=== PATIENT | male | born 1985 | race Caucasian/White ===

== ENCOUNTER 2018-12-16 13:46 | Emergency (ER) | payer BC ==
--- NOTE | 2018-12-16 15:21 | EDM.PDOC ---
ED HPI GENERAL MEDICAL PROBLEM - General Chief Complaint: Skin Complaint Stated Complaint: CHEST PAIN X 1 WEEK Time Seen by Provider: 12/16/18 15:05 Source of Information: Reports: Patient History Limitations: Reports: No Limitations - History of Present Illness INITIAL COMMENTS - FREE TEXT/NARRATIVE: 33-year-old male presents for evaluation and treatment of chest wall pain. Patient reports that he has an abscess to the chest wall. He had one to his right lower chest recently. This is been going on since around March. He has been seen a pv installer tech and infectious disease for this. At this time he is not on any antibiotics. He has scheduled follow-up with his infectious disease provider on December 25. He states that he had a biopsy and culture done on November 16 of this area. There is no growth after 2 weeks and 4 weeks. Had an MRI done on November 07. Patient reports for the last week he has had increasing pain to the area. Reports that movement causes significant pain. He is also concerned as he has appreciated overlying erythema over the area. He feels that it is increasing in size. He has been using [id number] naproxen and ice without any relief. He denies any fevers, chills, nausea or vomiting. Chest Pain Score (Numeric/FACES): 7 - Related Data Allergies Allergy/AdvReac Type Severity Reaction Status Date / Time tramadol Allergy Itching Verified 12/16/18 14:35 Home Meds: Home Meds Acetaminophen/oxyCODONE [Percocet 325-5 MG] 1 tab PO Q6HR PRN #7 tab 12/16/18 [ Rx] Doxycycline [Vibramycin] 100 mg PO BID #20 cap 12/16/18 [Rx] Past Medical History HEENT History: Reports: Impaired Vision Other HEENT History: wears eyeglasses. Musculoskeletal History: Reports: Fracture Other Musculoskeletal History: C3-C4 fx. Dermatologic History: Reports: Other (See Below) Other Dermatologic History: started Mar 2018 with abscess area to chest, other skin abscesses. - Infectious Disease History Infectious Disease History: Reports: Chicken Pox - Past Surgical History Musculoskeletal Surgical History: Reports: Other (See Below) Other Musculoskeletal Surgeries/Procedures:: spinal fusion, L-spine. Dermatological Surgical History: Reports: Skin Biopsy Social & Family History - Tobacco Use Smoking Status *Q: Never Smoker Second Hand Smoke Exposure: No - Caffeine Use Caffeine Use: Reports: Coffee - Recreational Drug Use Recreational Drug Use: No ED ROS GENERAL - Review of Systems Review Of Systems: See Below Constitutional: Denies: Fever, Chills Cardiovascular: Reports: Chest Pain (Chest wall) GI/Abdominal: Denies: Nausea, Vomiting Skin: Reports: Erythema, Lumps (Chest wall) ED EXAM, SKIN/RASH Exam: See Below Exam Limited By: No Limitations General Appearance: Alert, WD/WN, No Apparent Distress, Thin Respiratory/Chest: No Respiratory Distress, Lungs Clear, Normal Breath Sounds Cardiovascular: Normal Peripheral Pulses, Regular Rate, Rhythm, No Murmur GI/Abdominal: Normal Bowel Sounds, Soft, Non-Tender Neurological: Alert, Oriented, Normal Cognition Psychiatric: Normal Affect, Normal Mood Skin: Warm, Dry, Normal Color, Other (approximately 6cm in diameter mass to te anterior lower substernal/epigastric area; tender to palpation, no prurlent drainage, very slight overlying erythema, ) Course - Vital Signs Last Recorded V/S: Last Vital Signs Temp 97.9 F 12/16/18 15:49 Pulse 86 12/16/18 15:49 Resp 16 12/16/18 15:49 BP 139/107 H 12/16/18 15:49 Pulse Ox 99 12/16/18 15:49 - Re-Assessments/Exams Free Text/Narrative Re-Assessment/Exam: 12/16/18 15:19 Will start antibiotics possibly very early cellulitis. Will also give a fe wtabs for pain control. Educated ER is unable to refill narcotics. He will need to see his PCP or pain management for further pain control. Discharge instructions as documented. Departure - Departure Time of Disposition: 15:25 Disposition: Home, Self-Care 01 Condition: Fair Clinical Impression: Chest wall pain, Cellulitis - Discharge Information *PRESCRIPTION DRUG MONITORING PROGRAM REVIEWED*: Yes *COPY OF PRESCRIPTION DRUG MONITORING REPORT IN PATIENT TATUM: No Prescriptions: Acetaminophen/oxyCODONE [Percocet 325-5 MG] 1 tab PO Q6HR PRN #7 tab PRN Reason: Pain Doxycycline [Vibramycin] 100 mg PO BID #20 cap Instructions: Cellulitis, Adult, Chest Wall Pain, [id number] Referrals: Melisa Braswell PA-C [Primary Care Provider] - Forms: ED Department Discharge Additional Instructions: Doxycycline 1 tab twice a day for 10 days unless otherwise directed by primary care doctor or your infectious disease specialist. Percocet 1 tab every 6 hour as needed for pain. Percocet is habit-forming, take as few these as needed control your pain. Do not drive or operate machinery within 10 hours of taking prescription narcotic pain medication. unfortunately, the ER is unable to refill narcotics or manage chronic pain. Follow-up with your primary care provider for further management of your pain. Please return to the ER if your symptoms change or worsen.
== END 2018-12-16 15:49 | disposition home or self-care (01) ==
LOC: JD.ED 13:46
DX: L03.313 Cellulitis of chest wall (principal); R07.89 Other chest pain
CPT/HCPCS: 99284

== ENCOUNTER 2019-02-27 12:25 | Emergency (ER) | payer BC ==
[2019-02-27] MEDS ORDERED: Acetaminophen/oxyCODONE 325-5 MG Tab PO ONE (13:18)
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
== END 2019-02-27 14:23 | disposition home or self-care (01) ==
LOC: JD.ED 12:25
DX: M54.2 Cervicalgia (principal); M25.512 Pain in left shoulder; M79.621 Pain in right upper arm; Z87.81 Personal history of (healed) traumatic fracture
CPT/HCPCS: 99283; A9270

== ENCOUNTER 2019-03-01 11:37 | Emergency (ER) | payer BC ==
[2019-03-01] MEDS ORDERED: Sodium Chloride 0.9% 10 ML Syringe FLUSH PRN (12:40)
[2019-03-01] MEDS ORDERED: Sodium Chloride 0.9% 1,000 ML IV ONE (12:40)
--- NOTE | 2019-03-01 12:40 | EDM.PDOC ---
ED HPI GENERAL MEDICAL PROBLEM - General Chief Complaint: Flank Pain Stated Complaint: LEFT SIDE KIDNEY PAIN Time Seen by Provider: 03/01/19 12:07 Source of Information: Reports: Patient, RN Notes Reviewed History Limitations: Reports: No Limitations - History of Present Illness INITIAL COMMENTS - FREE TEXT/NARRATIVE: Patient is a 33-year-old male who presents to the ED for evaluation of left kidney pain. Patient notes that this left kidney pain is been here for around 1 -1.5 weeks now. He notes that when he takes any sort NSAIDs, this ends to make the pain worse. He notes that he has been taking Percocet, the steroid prescription given the other day for his neck pain, ibuprofen and naproxen. He states that the NSAIDs make pain worse. He notes a constant throbbing, but also gets some sharp flares at times. He also is complaining of left-sided flank pain. He notes some generalized fatigue, and thought maybe his urine could be a little bit strong smelling, he does note that they have been making lot segment changes as well. He recently started Vyvanse, which is an amphetamine derivative for ADHD. He does note that he has felt dehydrated a little bit more since starting the Vyvanse. His primary care provider is Melisa Braswell. He denies any hematuria, fevers or chills, dysuria, urinary frequency or urgency. Left Flank Pain Score (Numeric/FACES): 7 - Related Data Allergies Allergy/AdvReac Type Severity Reaction Status Date / Time tramadol Allergy Itching Verified 03/01/19 12:13 Home Meds: Home Meds Acetaminophen/oxyCODONE [Percocet 325-5 MG] 1 each PO Q6H PRN #20 tab 02/27/19 [ Rx] Colchicine 0.6 mg PO DAILY 02/27/19 [History] Gabapentin [Neurontin] 200 mg PO BID 02/27/19 [History] Hydroxychloroquine [Plaquenil] 200 mg PO BID 02/27/19 [History] Lisdexamfetamine Dimesylate [Vyvanse] 20 mg PO DAILY 02/27/19 [History] Multivitamin [Multivitamins] 1 mg PO DAILY 02/27/19 [History] Omeprazole 20 mg PO DAILY 02/27/19 [History] cloNIDine [Catapres] 0.1 mg PO BID 02/27/19 [History] predniSONE 20 mg PO ASDIRECTED #15 tab 02/27/19 [Rx] tiZANidine [Zanaflex] 4 mg PO DAILY 02/27/19 [History] Past Medical History HEENT History: Reports: Impaired Vision Other HEENT History: wears eyeglasses. Musculoskeletal History: Reports: Fracture Other Musculoskeletal History: C3-C4 fx. Dermatologic History: Reports: Other (See Below) Other Dermatologic History: started Mar 2018 with abscess area to chest, other skin abscesses. - Infectious Disease History Infectious Disease History: Reports: Chicken Pox - Past Surgical History Musculoskeletal Surgical History: Reports: Other (See Below) Other Musculoskeletal Surgeries/Procedures:: spinal fusion, L-spine. Dermatological Surgical History: Reports: Skin Biopsy Social & Family History - Family History Family Medical History: Noncontributory - Tobacco Use Smoking Status *Q: Never Smoker - Caffeine Use Caffeine Use: Reports: Soda ED ROS GENERAL - Review of Systems Review Of Systems: See Below Constitutional: Denies: Fever, Chills HEENT: Reports: No Symptoms Respiratory: Denies: Shortness of Breath Cardiovascular: Denies: Chest Pain GI/Abdominal: Reports: Diarrhea (mild amount of loose stools lately.). Denies: Constipation, Nausea, Vomiting : Reports: Flank Pain (Left flank). Denies: Discharge, Dysuria, Frequency, Hematuria, Urgency Musculoskeletal: Reports: Neck Pain (chronic R side) Skin: Reports: No Symptoms Neurological: Reports: No Symptoms Psychiatric: Reports: No Symptoms ED EXAM, RENAL/ - Physical Exam Exam: See Below Exam Limited By: No Limitations General Appearance: Alert, WD/WN, No Apparent Distress, Anxious (mildly) Eye Exam: Bilateral Eye: EOMI, Normal Inspection, PERRL Ears: Normal External Exam Nose: Normal Inspection Throat/Mouth: Normal Inspection, Normal Lips, Normal Teeth, Normal Gums, Normal Oropharynx, Normal Voice, No Airway Compromise Head: Atraumatic, Normocephalic Neck: Normal Inspection Respiratory/Chest: No Respiratory Distress, Lungs Clear, Normal Breath Sounds, No Accessory Muscle Use, Chest Non-Tender Cardiovascular: Normal Peripheral Pulses, Regular Rate, Rhythm, No Murmur GI/Abdominal: Normal Bowel Sounds, Soft, Non-Tender, No Distention, No Mass Back Exam: Normal Inspection, Full Range of Motion, CVA Tenderness (L). No: CVA Tenderness (R) Extremities: Normal Inspection, Normal Capillary Refill Neurological: Alert, Oriented, Normal Cognition, No Motor/Sensory Deficits Psychiatric: Normal Affect, Normal Mood Skin Exam: Warm, Dry, Intact, Normal Color, No Rash Course - Vital Signs Last Recorded V/S: Last Vital Signs Temp 98.0 F 03/01/19 12:05 Pulse 105 H 03/01/19 12:05 Resp 20 03/01/19 12:05 BP 141/101 H 03/01/19 12:05 Pulse Ox 100 03/01/19 12:05 - Orders/Labs/Meds Orders: Active Orders 24 hr Category Date Time Status Bladder Scan [RC] ASDIRECTED Care 03/01/19 15:14 Ordered Peripheral IV Care [RC] . DIRECTED Care 03/01/19 12:40 Ordered Sodium Chloride 0.9% [Saline Flush] Med 03/01/19 12:40 Ordered 10 ml FLUSH ASDIRECTED PRN Peripheral IV Insertion Adult [OM.PC] Stat Oth 03/01/19 12:40 Ordered Medication Orders Sodium Chloride (Saline Flush) 10 ml FLUSH ASDIRECTED PRN PRN Reason: Keep Vein Open Last Admin: 03/01/19 14:55 Dose: 10 ml Labs: Laboratory Tests 03/01/19 03/01/19 03/01/19 Range/Units 12:32 12:52 12:52 WBC 6.48 (4.23-9.07) K/mm3 RBC 4.92 (4.63-6.08) M/mm3 Hgb 14.1 (13.7-17.5) gm/dl Hct 43.5 (40.1-51.0) % MCV 88.4 (79.0-92.2) fl MCH 28.7 (25.7-32.2) pg MCHC 32.4 (32.2-35.5) g/dl RDW Std Deviation 38.9 (35.1-43.9) fL Plt Count 237 (163-337) K/mm3 MPV 10.8 (9.4-12.3) fl Neut % (Auto) 88.4 H (34.0-67.9) % Lymph % (Auto) 8.2 L (21.8-53.1) % [place] % (Auto) 2.9 L (5.3-12.2) % Eos % (Auto) 0 L (0.8-7.0) Baso % (Auto) 0.2 (0.1-1.2) % Neut # (Auto) 5.73 H (1.78-5.38) K/mm3 Lymph # (Auto) 0.53 L (1.32-3.57) K/mm3 [place] # (Auto) 0.19 L (0.30-0.82) K/mm3 Eos # (Auto) 0.00 L (0.04-0.54) K/mm3 Baso # (Auto) 0.01 (0.01-0.08) K/mm3 Manual Slide Review Normal smear Sodium 142 (136-145) mEq/L Potassium 4.2 (3.5-5.1) mEq/L Chloride 104 (98-107) mEq/L Carbon Dioxide 28 (21-32) mEq/L Anion Gap 14.2 (5-15) BUN 7 (7-18) mg/dL Creatinine 0.9 (0.7-1.3) mg/dL Est Cr Clr Drug Dosing 105.36 mL/min Estimated GFR (MDRD) > 60 (>60) mL/min BUN/Creatinine Ratio 7.8 L (14-18) Glucose 116 H (74-106) mg/dL Calcium 10.3 H (8.5-10.1) mg/dL Total Bilirubin 0.2 (0.2-1.0) mg/dL AST 15 (15-37) U/L ALT 28 (16-63) U/L Alkaline Phosphatase 145 H (46-116) U/L Total Protein 8.7 H (6.4-8.2) g/dl Albumin 4.1 (3.4-5.0) g/dl Globulin 4.6 gm/dL Albumin/Globulin Ratio 0.9 L (1-2) Urine Color Yellow (Yellow) Urine Appearance Clear (Clear) Urine pH 7.0 (5.0-8.0) Ur Specific [place] 1.015 (1.005-1.030) Urine Protein Negative (Negative) Urine Glucose (UA) Negative (Negative) Urine Ketones Negative (Negative) Urine Occult Blood Negative (Negative) Urine Nitrite Negative (Negative) Urine Bilirubin Negative (Negative) Urine Urobilinogen 0.2 (0.2-1.0) Ur Leukocyte Esterase Negative (Negative) Urine RBC Not seen (0-5) /hpf Urine WBC 0-5 (0-5) /hpf Ur Squamous Epith Cells 0-5 (0-5) /hpf Urine Bacteria Few (FEW) /hpf Urine Mucus Few (FEW) /hpf Meds: Medications Generic Name Dose Route Start Last Admin Trade Name Freq PRN Reason Stop Dose Admin Sodium Chloride 10 ml 03/01/19 12:40 03/01/19 14:55 Saline Flush FLUSH 10 ml ASDIRECTED PRN Administration Keep Vein Open Discontinued Medications Generic Name Dose Route Start Last Admin Trade Name Freq PRN Reason Stop Dose Admin Hydromorphone HCl 1 mg 03/01/19 13:55 03/01/19 14:49 Dilaudid IVPUSH 03/01/19 13:56 1 mg ONETIME ONE Administration Sodium Chloride 1,000 mls @ 500 mls/hr 03/01/19 12:40 03/01/19 14:48 Normal Saline IV 03/01/19 14:39 500 mls/hr ONETIME ONE Administration Iopamidol 100 ml 03/01/19 13:57 03/01/19 14:55 Isovue-300 (61%) IVPUSH 03/01/19 13:58 100 ml ONETIME ONE Administration Magnesium Citrate 296 ml 03/01/19 15:41 03/01/19 15:51 Citrate Of Magnesia PO 03/01/19 15:42 296 ml ONETIME ONE Administration Sodium Chloride 10 ml 03/01/19 13:57 03/01/19 15:51 Saline Flush FLUSH 03/01/19 13:58 10 ml ONETIME ONE Administration - Re-Assessments/Exams Free Text/Narrative Re-Assessment/Exam: 03/01/19 12:38 Patient presents for the evaluation of left-sided kidney pain. Did order a UA, CBC, CMP for initial evaluation. Suspicious for either acute kidney injury due to NSAID use, possible kidney stone, or UTI. He does take quite a few NSAID therapy today, and with him stating the pain worsens after NSAID use, this makes this more suspicious. Will likely start IV, and given some fluids as well. 03/01/19 14:18 Labs came back and are essentially within normal limits. I did discuss results with the patient, and he is concerned that he still feeling quite a bit of pain on the left flank. He was requesting that a CT be done for further evaluation. I did order a CT with IV contrast to evaluate for further etiology. 03/01/19 15:19 CT is done, Dr. Sykes appreciates quite a bit of stool throughout his colon, and a very distended bladder. But no other acute abnormalities were appreciated. Official radiology read is pending. I will order a post void residual after he has voided the next time, and possibly send the patient home with magnesium citrate to a bowel cleanse. 03/01/19 15:41 Official radiology read on the CT demonstrates nothing acute appreciated. As noted above. There was quite a bit of stool noted within the colon. We'll still some question with magnesium citrate, pending a normal post-void residual. Departure - Departure Time of Disposition: 15:43 Disposition: Home, Self-Care 01 Condition: Fair Clinical Impression: Constipation Qualifiers: Constipation type: unspecified constipation type Qualified Code(s): K59.00 - Constipation, unspecified - Discharge Information *PRESCRIPTION DRUG MONITORING PROGRAM REVIEWED*: No *COPY OF PRESCRIPTION DRUG MONITORING REPORT IN PATIENT TATUM: No Instructions: Constipation, Adult, [id number] Referrals: Melisa Braswell PA-C [Primary Care Provider] - Forms: ED Department Discharge Additional Instructions: You were evaluated in the ER today regarding her left-sided abdominal pain. Laboratory evaluation was within normal limits, there is no acute bacterial infection, you do not have blood in urine, and you have no electrolyte abnormalities, liver enzymes and good and kidney function looks good. Your abdomen CT demonstrated no acute structural abnormalities, it did show a diffuse amount of stool within your colon, which is suggestive of constipation. Due to you having to take opioid pain medications for pain relief, this is likely what might be causing your constipation. You should take MiraLAX on a daily basis to help soften your stools, increase your oral fluid intake. You were provided with a bottle of magnesium citrate, please drink one half of the bottle, wait a few hours for a large bowel movement, and if you do not have a large bowel movement after this, repeat the other half bottle. You may use your Percocet as previously prescribed, also you may use extra Tylenol for further pain relief. Keep your appointment with Melisa Braswell, regarding your medication changes, and possible medication side effects that you might be experiencing. Please return to the ED if your symptoms should change or worsen. - My Orders Last 24 Hours: My Active Orders 03/01/19 12:40 Peripheral IV Care [RC] . DIRECTED Sodium Chloride 0.9% [Saline Flush] 10 ml FLUSH ASDIRECTED PRN Peripheral IV Insertion Adult [OM.PC] Stat 03/01/19 15:14 Bladder Scan [RC] ASDIRECTED - Assessment/Plan Last 24 Hours: My Active Orders 03/01/19 12:40 Peripheral IV Care [RC] . DIRECTED Sodium Chloride 0.9% [Saline Flush] 10 ml FLUSH ASDIRECTED PRN Peripheral IV Insertion Adult [OM.PC] Stat 03/01/19 15:14 Bladder Scan [RC] ASDIRECTED
[2019-03-01] MEDS ORDERED: HYDROmorphone 1 MG/ML Syringe IVPUSH ONE (13:55)
[2019-03-01] MEDS ORDERED: Sodium Chloride 0.9% 10 ML Syringe FLUSH ONE (13:57)
[2019-03-01] MEDS ORDERED: Iopamidol 612 MG/ML 100 ML Bottle IVPUSH ONE (13:57)
--- NOTE | 2019-03-01 15:32 | CT ---
CT abdomen and pelvis Technique: Multiple axial sections were obtained from above the dome of the diaphragm inferiorly through the pubic symphysis. Intravenous contrast was utilized. No oral contrast has been given. Delayed images were obtained through the bladder. Comparison: No prior abdominal imaging. Findings: Visualized lung bases show nothing acute. Liver shows no focal abnormality. Gallbladder shows no calcified gallstones. Pancreas is within normal limits. Adrenal glands show no nodule. Kidneys show symmetric contrast enhancement without hydronephrosis or mass. Aorta shows no aneurysm. No retroperitoneal adenopathy or mesenteric abnormalities are seen. No pelvic mass or adenopathy is seen. No free fluid or inflammatory change is seen within the abdomen or pelvis. Appendix not definitely visualized. Bone window settings shows previous surgery at L5-S1. Scoliosis is present within the spine. Delayed images show contrast within distal ureters and within the bladder. Impression: 1. Nothing acute is appreciated on CT study of the abdomen and pelvis. Diagnostic code #2
[2019-03-01] MEDS ORDERED: Magnesium Citrate Solution 296 ML Bottle PO ONE (15:41)
== END 2019-03-01 16:10 | disposition home or self-care (01) ==
LOC: JD.ED 11:37
DX: K59.00 Constipation, unspecified (principal); Z88.6 Allergy status to analgesic agent
CPT/HCPCS: 36415; 51798; 74177; 80053; 81001; 85025; 96361; 96374; 99284; A9270; J1170; J7040; Q9967

== ENCOUNTER 2019-04-28 18:39 | Emergency (ER) | payer BC ==
[2019-04-28] MEDS ORDERED: LORazepam 2 MG/ML SDV IVPUSH SCH (20:45)
--- NOTE | 2019-04-28 20:46 | EDM.PDOC ---
ED HPI GENERAL MEDICAL PROBLEM - General Chief Complaint: Skin Complaint Stated Complaint: HAD SURGERY ON CHEST NOW HAS A PAINFUL FLUID SAC Time Seen by Provider: 04/28/19 19:13 Source of Information: Reports: Patient History Limitations: Reports: No Limitations (Patient is unsure of specifics of his condition.) - History of Present Illness INITIAL COMMENTS - FREE TEXT/NARRATIVE: TRIAGE NOTE -- Pt had a aseptic abscess removed in January from his left chest. Now incision is weeping purulent drainage, 5cm width. [ End ] The patient has a draining feature of his central lower chest in the midline area. 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 He is not aware of what kind of underlying condition he has producing this. He sees a product steward and an infectious disease specialist both in [place]. He is unclear as to what is being treated by the specialist. The latest abscess was drained in January of this year. About 5 hours prior to presentation fluid began emanating from the site of his last abscess. There is been no fever or any other symptom of acute medical illness otherwise. He takes medications and has apparently taken Percocet which he takes multiple times a day without relief. Risk factors would include his underlying illness which at this point is unspecified and not clearly understood by the patient. Left Chest Pain Score (Numeric/FACES): 8 - Related Data Allergies Allergy/AdvReac Type Severity Reaction Status Date / Time tramadol Allergy Itching Verified 04/28/19 19:11 Home Meds: Home Meds Acetaminophen/oxyCODONE [Percocet 325-5 MG] 1 each PO Q6H PRN #20 tab 02/27/19 [ Rx] Colchicine 0.6 mg PO DAILY 02/27/19 [History] Gabapentin [Neurontin] 200 mg PO BID 02/27/19 [History] Hydroxychloroquine [Plaquenil] 200 mg PO BID 02/27/19 [History] Lisdexamfetamine Dimesylate [Vyvanse] 20 mg PO DAILY 02/27/19 [History] Multivitamin [Multivitamins] 1 mg PO DAILY 02/27/19 [History] Omeprazole 20 mg PO DAILY 02/27/19 [History] cloNIDine [Catapres] 0.1 mg PO BID 02/27/19 [History] tiZANidine [Zanaflex] 4 mg PO DAILY 02/27/19 [History] Naproxen [Naprosyn] 500 mg PO Q12HR PRN #10 tab 03/15/19 [Rx] Past Medical History HEENT History: Reports: Impaired Vision Other HEENT History: wears eyeglasses. Gastrointestinal History: Reports: GERD Musculoskeletal History: Reports: Fracture Other Musculoskeletal History: C3-C4 fx. Dermatologic History: Reports: Other (See Below) Other Dermatologic History: started Mar 2018 with abscess area to chest, other skin abscesses. Jan 2019 abcess removal/chest - Infectious Disease History Infectious Disease History: Reports: Chicken Pox - Past Surgical History Musculoskeletal Surgical History: Reports: Other (See Below) Other Musculoskeletal Surgeries/Procedures:: spinal fusion, L-spine. Dermatological Surgical History: Reports: Skin Biopsy Social & Family History - Family History Family Medical History: Noncontributory - Tobacco Use Smoking Status *Q: Current Every Day Smoker Years of Tobacco use: 10 Packs/Tins Daily: 0.5 - Caffeine Use Caffeine Use: Reports: Coffee - Recreational Drug Use Recreational Drug Use: No ED ROS GENERAL - Review of Systems Review Of Systems: Comprehensive ROS is negative, except as noted in HPI. ED EXAM, SKIN/RASH Exam: See Below Exam Limited By: No Limitations General Appearance: Alert, WD/WN, No Apparent Distress Eye Exam: Bilateral Eye: EOMI, PERRL Ears: Normal External Exam Nose: Normal Inspection Throat/Mouth: Normal Inspection Head: Atraumatic, Normocephalic Neck: Normal Inspection, Supple Respiratory/Chest: No Respiratory Distress, Lungs Clear, Other (Lower chest centrally just above the xiphoid process there is evidence of a transverse old incision about 5 cm overall with a clear yellowish viscous discharge coming from the wound. There is scant erythema. There is however a good bit of tenderness surrounding this feature. He is especially tender to deep palpation or pressure on the surrounding deep structures.) Cardiovascular: Regular Rate, Rhythm GI/Abdominal: Soft, Non-Tender Back Exam: Normal Inspection Extremities: Normal Inspection, Non-Tender Neurological: Alert, Oriented Psychiatric: Flat Affect Skin: Warm, Dry Course - Vital Signs Text/Narrative:: The various evaluations been reviewed. There are no salient lab abnormals. There is no elevated white count. However in light of the presentation and exam a CT of the chest was done which shows features of the sternum suspicious for osteomyelitis. We will go ahead and treat him empirically with vancomycin and Rocephin. It is preferable that his infectious disease specialist be involved in this. As it is the weekend it is expected that he cannot be seen until Tuesday. He is to place a call over the weekend and see if the ID [facility] consultant will call him back and give him further instructions. In any event we will continue with outpatient vancomycin and Rocephin given at the hospital as an outpatient until further instructions and recommendations from his infectious disease specialist. Last Recorded V/S: Last Vital Signs Temp 36.4 C 04/28/19 19:09 Pulse 98 04/28/19 19:09 Resp 15 04/28/19 19:09 BP 177/109 H 04/28/19 19:09 Pulse Ox 100 04/28/19 19:09 - Orders/Labs/Meds Orders: Active Orders 24 hr Category Date Time Status Chest w Cont [CT] Stat Exams 04/28/19 21:09 Taken CULTURE BLOOD [BC] Stat Lab 04/28/19 20:30 Received CULTURE BLOOD [BC] Stat Lab 04/28/19 20:35 Received CULTURE WOUND [RM] Stat Lab 04/28/19 20:35 Received LORazepam [Ativan] Med 04/28/19 20:45 Active 2 mg IVPUSH ONETIME Sodium Chloride 0.9% [Saline Flush] Med 04/28/19 21:19 Active 10 ml FLUSH ONETIME PRN Vancomycin [Vancocin] 1,675 gm Med 04/28/19 23:00 Ordered Sodium Chloride 0.9% [Normal Saline (AdvBag)] 250 ml IV ONETIME cefTRIAXone [Rocephin] 2 gm Med 04/28/19 23:15 Ordered Sodium Chloride 0.9% [Normal Saline] 100 ml IV ONETIME Blood Culture x2 Reflex Set [OM.PC] Stat Oth 04/28/19 19:46 Ordered Medication Orders Vancomycin HCl 1,675 gm/ (Sodium Chloride) 250 mls @ 250 mls/hr IV ONETIME ELIZABETH Ceftriaxone Sodium 2 gm/ (Sodium Chloride) 100 mls @ 200 mls/hr IV ONETIME ELIZABETH Lorazepam (Ativan) 2 mg IVPUSH ONETIME ELIZABETH Last Admin: 04/28/19 20:45 Dose: 2 mg Sodium Chloride (Saline Flush) 10 ml FLUSH ONETIME PRN PRN Reason: KEEP VEIN OPEN Last Admin: 04/28/19 21:39 Dose: 10 ml Labs: Laboratory Tests 04/28/19 04/28/19 04/28/19 Range/Units 20:30 20:30 20:30 WBC 7.37 (4.23-9.07) K/mm3 RBC 4.66 (4.63-6.08) M/mm3 Hgb 13.5 L (13.7-17.5) gm/dl Hct 40.7 (40.1-51.0) % MCV 87.3 (79.0-92.2) fl MCH 29.0 (25.7-32.2) pg MCHC 33.2 (32.2-35.5) g/dl RDW Std Deviation 40.7 (35.1-43.9) fL Plt Count 281 (163-337) K/mm3 MPV 10.3 (9.4-12.3) fl Neut % (Auto) 62.2 (34.0-67.9) % Lymph % (Auto) 26.5 (21.8-53.1) % [place] % (Auto) 9.1 (5.3-12.2) % Eos % (Auto) 1.8 (0.8-7.0) Baso % (Auto) 0.3 (0.1-1.2) % Neut # (Auto) 4.59 (1.78-5.38) K/mm3 Lymph # (Auto) 1.95 (1.32-3.57) K/mm3 [place] # (Auto) 0.67 (0.30-0.82) K/mm3 Eos # (Auto) 0.13 (0.04-0.54) K/mm3 Baso # (Auto) 0.02 (0.01-0.08) K/mm3 ESR 56 H (0-15) mm/hr Sodium 141 (136-145) mEq/L Potassium 3.8 (3.5-5.1) mEq/L Chloride 103 (98-107) mEq/L Carbon Dioxide 28 (21-32) mEq/L Anion Gap 13.8 (5-15) BUN 12 (7-18) mg/dL Creatinine 0.7 (0.7-1.3) mg/dL Est Cr Clr Drug Dosing 141.19 mL/min Estimated GFR (MDRD) > 60 (>60) mL/min BUN/Creatinine Ratio 17.1 (14-18) Glucose 96 (74-106) mg/dL Calcium 9.6 (8.5-10.1) mg/dL Total Bilirubin 0.2 (0.2-1.0) mg/dL AST 20 (15-37) U/L ALT 36 (16-63) U/L Alkaline Phosphatase 175 H (46-116) U/L Total Protein 8.5 H (6.4-8.2) g/dl Albumin 3.7 (3.4-5.0) g/dl Globulin 4.8 gm/dL Albumin/Globulin Ratio 0.8 L (1-2) Meds: Medications Generic Name Dose Route Start Last Admin Trade Name Freq PRN Reason Stop Dose Admin Vancomycin HCl 1,675 gm/ 250 mls @ 250 mls/hr 04/28/19 23:00 Sodium Chloride IV ONETIME ELIZABETH Ceftriaxone Sodium 2 gm/ 100 mls @ 200 mls/hr 04/28/19 23:15 Sodium Chloride IV ONETIME ELIZABETH Lorazepam 2 mg 04/28/19 20:45 04/28/19 20:45 Ativan IVPUSH 2 mg ONETIME ELIZABETH Administration Sodium Chloride 10 ml 04/28/19 21:19 04/28/19 21:39 Saline Flush FLUSH 10 ml ONETIME PRN Administration KEEP VEIN OPEN Discontinued Medications Generic Name Dose Route Start Last Admin Trade Name Freq PRN Reason Stop Dose Admin Iopamidol 100 ml 04/28/19 21:19 04/28/19 21:39 Isovue-300 (61%) IVPUSH 04/28/19 21:20 100 ml ONETIME ONE Administration Ketorolac Tromethamine 30 mg 04/28/19 22:29 04/28/19 22:32 Toradol IVPUSH 04/28/19 22:30 30 mg ONETIME ONE Administration Departure - Departure Time of Disposition: 23:15 Disposition: Home, Self-Care 01 Condition: Good Clinical Impression: Osteomyelitis of sternum - Discharge Information Referrals: Melisa Braswell PA-C [Primary Care Provider] - Forms: ED Department Discharge Additional Instructions: Your physical exam and CT scan of the chest are both suggestive of osteomyelitis of the breastbone. We will go ahead and treat this with 2 antibiotics, Rocephin and vancomycin. Until you can get in touch with your infectious disease specialist for definitive care this will be continued as an outpatient at the hospital. Please call your infectious disease specialist as soon as possible even if it is on the weekend and leave a message and if you receive a call back abide by any instructions that you were given. If there is any difficulty reaching your specialist by the end of the day on Tuesday please come to the emergency department and transfer will be considered. Return right away for any increased pain, fever, or any other symptom of acute illness or any other concern related to this. Sepsis Event Note - Evaluation Sepsis Screening Result: No Definite Risk - Focused Exam Vital Signs: Vital Signs Temp Pulse Resp BP Pulse Ox 04/28/19 19:09 36.4 C 98 15 177/109 H 100 Date Exam was Performed: 04/28/19 Time Exam was Performed: 23:13 - My Orders Last 24 Hours: My Active Orders 04/28/19 19:46 Blood Culture x2 Reflex Set [OM.PC] Stat 04/28/19 20:30 CULTURE BLOOD [BC] Stat 04/28/19 20:35 CULTURE BLOOD [BC] Stat CULTURE WOUND [RM] Stat 04/28/19 20:45 LORazepam [Ativan] 2 mg IVPUSH ONETIME 04/28/19 21:09 Chest w Cont [CT] Stat 04/28/19 21:19 Sodium Chloride 0.9% [Saline Flush] 10 ml FLUSH ONETIME PRN 04/28/19 23:00 Vancomycin [Vancocin] 1,675 gm Sodium Chloride 0.9% [Normal Saline (AdvBag)] 250 ml IV ONETIME 04/28/19 23:15 cefTRIAXone [Rocephin] 2 gm Sodium Chloride 0.9% [Normal Saline] 100 ml IV ONETIME - Assessment/Plan Last 24 Hours: My Active Orders 04/28/19 19:46 Blood Culture x2 Reflex Set [OM.PC] Stat 04/28/19 20:30 CULTURE BLOOD [BC] Stat 04/28/19 20:35 CULTURE BLOOD [BC] Stat CULTURE WOUND [RM] Stat 04/28/19 20:45 LORazepam [Ativan] 2 mg IVPUSH ONETIME 04/28/19 21:09 Chest w Cont [CT] Stat 04/28/19 21:19 Sodium Chloride 0.9% [Saline Flush] 10 ml FLUSH ONETIME PRN 04/28/19 23:00 Vancomycin [Vancocin] 1,675 gm Sodium Chloride 0.9% [Normal Saline (AdvBag)] 250 ml IV ONETIME 04/28/19 23:15 cefTRIAXone [Rocephin] 2 gm Sodium Chloride 0.9% [Normal Saline] 100 ml IV ONETIME
[2019-04-28] MEDS ORDERED: Iopamidol 612 MG/ML 100 ML Bottle IVPUSH ONE (21:19)
[2019-04-28] MEDS ORDERED: Sodium Chloride 0.9% 10 ML Syringe FLUSH PRN (21:19)
[2019-04-28] MEDS ORDERED: Ketorolac 30 MG/ML SDV IVPUSH ONE (22:29)
[2019-04-28] MEDS ORDERED: VANCOMYCIN IV SCH (23:00)
[2019-04-28] MEDS ORDERED: SODIUM CHLORIDE 0.9% IV SCH (23:00)
[2019-04-28] MEDS ORDERED: cefTRIAXone 2 GM in Sodium Chloride 0.9% 100 ML IV SCH (23:15)
[2019-04-28] MEDS ORDERED: cefTRIAXone 2 GM in Sodium Chloride 0.9% 100 ML IV ONE (23:19)
[2019-04-28] MEDS ORDERED: VANCOMYCIN IV ONE (23:20)
[2019-04-28] MEDS ORDERED: SODIUM CHLORIDE 0.9% IV ONE (23:20)
[2019-04-28] MEDS ORDERED: Vancomycin 1.75 GM in Sodium Chloride 0.9% 500 ML IV ONE (23:42)
--- NOTE | 2019-04-30 07:12 | CT ---
CT chest Technique: Multiple axial sections were obtained above the lung apices inferiorly through the lung bases. Intravenous contrast was utilized. Comparison: Prior chest x-ray of 03/15/19, no previous chest CT is available. Findings: Low density abnormality is seen within the anterior chest wall slightly to the right of midline measuring approximately 3.2 cm in transverse dimension and 5.0 cm in craniocaudal dimension. This most likely represents abscess as noted in the clinical history. This occurs mostly within the subcutaneous tissues but does involve a portion of the muscles to the right of the sternum. Small amount of air is seen within this abnormality. Some erosions are seen within the adjacent sternum compatible with osteomyelitis. No pericardial fluid is seen. Mild gynecomastia identified bilaterally. Mediastinum and hilar regions show no adenopathy or mass. Visualized upper abdominal structures are within normal limits. No acute parenchymal change is seen within either lung. Impression: 1. Low density finding measuring 3.2 x 5.0 cm containing a small amount of air within the anterior chest slightly to the right of midline. This felt to represent abscess as noted in the clinical history. Mild erosion seen within the adjacent sternum compatible with osteomyelitis. Mild involvement of chest wall muscle seen to the right of the sternum. 2. Gynecomastia. 3. No additional abnormality seen on CT study of the chest. Diagnostic code #5 This report was dictated in [place] Standard Time I agree with preliminary report issued by [facility] ([facility] report finalized on 04/27/19, 9:40 PM Central Time)
== END 2019-04-29 02:17 | disposition home or self-care (01) ==
LOC: JD.ED 18:39
DX: M86.8X8 Other osteomyelitis, other site (principal); K21.9 Gastro-esophageal reflux disease without esophagitis; F17.210 Nicotine dependence, cigarettes, uncomplicated; Z88.5 Allergy status to narcotic agent; Z79.899 Other long term (current) drug therapy
CPT/HCPCS: 36415; 71260; 80053; 85025; 85652; 87040; 87070; 96365; 96366; 96367; 96375; 99285; J0696; J1885; J2060; J3370; J7040; J7050; Q9967; 99283

== ENCOUNTER 2019-04-29 11:17 | Emergency (ER) | payer BC ==
--- NOTE | 2019-04-29 11:55 | EDM.PDOC ---
ED HPI GENERAL MEDICAL PROBLEM - General Chief Complaint: General Stated Complaint: PAIN Time Seen by Provider: 04/29/19 11:44 - History of Present Illness INITIAL COMMENTS - FREE TEXT/NARRATIVE: 33-year-old male returns emergency room with chest wall pain. Patient was seen here last night started on IV antibiotics for suspected osteomyelitis and recurrent abscess formation on his chest. He carries a diagnosis of aseptic abscesses in the chest. He's had multiple drains in the past. At this point the patient is following up with his outpatient IV antibiotics. I reviewed his CAT scan with him with the concern of the osteomyelitis and the 4.5 x 3.2 abscess visualized anteriorly. The patient does not wish to be transferred at this point, he left a message with his surgeon, Dr. Guevara, and believes the doctor will return his call tomorrow when he is back in the office. Patient denies any fevers or chills and is otherwise doing okay he's just having pain not responding well to Percocet 1 every 6 hours. He has plenty of these at home Chest Pain Score (Numeric/FACES): 8 - Related Data Allergies Allergy/AdvReac Type Severity Reaction Status Date / Time tramadol Allergy Itching Verified 04/28/19 19:11 Home Meds: Home Meds Acetaminophen/oxyCODONE [Percocet 325-5 MG] 1 each PO Q6H PRN #20 tab 02/27/19 [ Rx] Colchicine 0.6 mg PO DAILY 02/27/19 [History] Gabapentin [Neurontin] 200 mg PO BID 02/27/19 [History] Hydroxychloroquine [Plaquenil] 200 mg PO BID 02/27/19 [History] Lisdexamfetamine Dimesylate [Vyvanse] 20 mg PO DAILY 02/27/19 [History] Multivitamin [Multivitamins] 1 mg PO DAILY 02/27/19 [History] Omeprazole 20 mg PO DAILY 02/27/19 [History] cloNIDine [Catapres] 0.1 mg PO BID 02/27/19 [History] tiZANidine [Zanaflex] 4 mg PO DAILY 02/27/19 [History] Naproxen [Naprosyn] 500 mg PO Q12HR PRN #10 tab 03/15/19 [Rx] Past Medical History HEENT History: Reports: Impaired Vision Other HEENT History: wears eyeglasses. Gastrointestinal History: Reports: GERD Musculoskeletal History: Reports: Fracture Other Musculoskeletal History: C3-C4 fx. Dermatologic History: Reports: Other (See Below) Other Dermatologic History: started Mar 2018 with abscess area to chest, other skin abscesses. Jan 2019 abcess removal/chest - Infectious Disease History Infectious Disease History: Reports: Chicken Pox - Past Surgical History Neurological Surgical History: Reports: Other (See Below) Other Neurological Surgeries/Procedures: neck fracture Musculoskeletal Surgical History: Reports: Other (See Below) Other Musculoskeletal Surgeries/Procedures:: spinal fusion, L-spine. Dermatological Surgical History: Reports: Skin Biopsy Social & Family History - Family History Family Medical History: Noncontributory - Tobacco Use Smoking Status *Q: Current Every Day Smoker Years of Tobacco use: 10 Packs/Tins Daily: 0.2 - Caffeine Use Caffeine Use: Reports: Coffee - Recreational Drug Use Recreational Drug Use: No ED ROS GENERAL - Review of Systems Review Of Systems: See Below Constitutional: Reports: No Symptoms. Denies: Fever, Chills, Night Sweats, Diaphoresis HEENT: Reports: No Symptoms Respiratory: Reports: Pleuritic Chest Pain. Denies: No Symptoms, Shortness of Breath, Wheezing, Cough, Sputum Cardiovascular: Reports: No Symptoms GI/Abdominal: Reports: No Symptoms ED EXAM, GENERAL - Physical Exam Exam: See Below Exam Limited By: No Limitations General Appearance: Alert, No Apparent Distress Head: Atraumatic, Normocephalic Neck: Normal Inspection, Supple, Non-Tender, Full Range of Motion. No: Lymphadenopathy (L), Lymphadenopathy (R) Respiratory/Chest: No Respiratory Distress, Lungs Clear, Normal Breath Sounds, Other (His abscess drain site has some foggy discolored fluid draining out of it this was cultured yesterday along with blood cultures that are pending.) Cardiovascular: Regular Rate, Rhythm, No Edema, No Murmur GI/Abdominal: Normal Bowel Sounds, Soft, Non-Tender Course - Vital Signs Last Recorded V/S: Last Vital Signs Temp 36.7 C 04/29/19 11:29 Pulse 74 04/29/19 11:29 Resp 20 04/29/19 11:29 BP 126/88 04/29/19 11:29 Pulse Ox 97 04/29/19 11:29 - Orders/Labs/Meds Meds: Medications Discontinued Medications Generic Name Dose Route Start Last Admin Trade Name Jasvir PRN Reason Stop Dose Admin Oxycodone/Acetaminophen 2 tab 04/29/19 12:11 Percocet 325-5 Mg PO 04/29/19 12:12 ONETIME ONE - Re-Assessments/Exams Free Text/Narrative Re-Assessment/Exam: 04/29/19 12:32 Patient does not appear to be ill at this point he is doing okay other than the chest wall discomfort. Despite discussions about the abscess seen on the CT the patient does not want to go to [place] today he is more worried about pain control. We discussed this and he continues to Percocet every 4-6 hours at home. I've encouraged the patient to consider going to [place]. He doesn't want to have any part of this. With the patient being afebrile otherwise doing okay I don't think laboratory evaluation is getting help me at this point since it was just done last night. We'll discharge with instructions to increase his Percocet Departure - Departure Time of Disposition: 12:33 Disposition: Home, Self-Care 01 Clinical Impression: Osteomyelitis of sternum, Chest wall abscess - Discharge Information Referrals: Melisa Braswell PA-C [Primary Care Provider] - Forms: ED Department Discharge Additional Instructions: Return to the emergency room with any questions problems or worsening symptoms. Be sure to call your surgeon tomorrow if you do not hear from him. Increase your Percocet 1-2 every 4-6 hours as needed. Allow 12 hours after using the Percocet before driving or returning to work Sepsis Event Note - Evaluation Sepsis Screening Result: No Definite Risk - Focused Exam Vital Signs: Vital Signs Temp Pulse Resp BP Pulse Ox 04/29/19 11:29 36.7 C 74 20 126/88 97 Date Exam was Performed: 04/29/19 Time Exam was Performed: 12:18
[2019-04-29] MEDS ORDERED: Acetaminophen/oxyCODONE 325-5 MG Tab PO ONE (12:11)
[2019-04-29] MEDS ORDERED: Famotidine 20 MG/2 ML SDV IVPUSH ONE (13:03)
[2019-04-29] MEDS ORDERED: diphenhydrAMINE 50 MG/ML SDV IVPUSH ONE (13:04)
== END 2019-04-29 15:17 | disposition home or self-care (01) ==
LOC: JD.ED 11:17 → SUPCPDRO 11:17 → JD.ED 15:17
DX: L02.213 Cutaneous abscess of chest wall (principal); M86.8X8 Other osteomyelitis, other site; K21.9 Gastro-esophageal reflux disease without esophagitis; F17.210 Nicotine dependence, cigarettes, uncomplicated; Z88.5 Allergy status to narcotic agent; Z79.899 Other long term (current) drug therapy
CPT/HCPCS: 99284; A9270; J1200; J3490; 99283

== ENCOUNTER 2021-09-08 12:51 | Emergency (ER) | payer BC ==
[2021-09-08] MEDS ORDERED: Sodium Chloride 0.9% 10 ML Syringe FLUSH PRN (13:36)
[2021-09-08] MEDS ORDERED: Acetaminophen 325 MG Tab PO ONE (14:02)
[2021-09-08] MEDS ORDERED: Alum Hydrox/Mag Hydrox/Simeth 30 ML, Lidocaine 2% 15 ML PO ONE ×2 (14:15)
== END 2021-09-08 15:20 | disposition home or self-care (01) ==
LOC: JD.ED 12:51
DX: R07.89 Other chest pain (principal); K21.9 Gastro-esophageal reflux disease without esophagitis; F17.210 Nicotine dependence, cigarettes, uncomplicated; Z88.5 Allergy status to narcotic agent; Z86.16 Personal history of COVID-19; Z79.899 Other long term (current) drug therapy
CPT/HCPCS: 36415; 71045; 80053; 83735; 84484; 85025; 85379; 93005; 99285; A9270; J3490

== ENCOUNTER 2022-06-12 20:25 | Emergency (ER) | payer BC | END 2022-06-12 22:00 | disposition home or self-care (01) | LOC: JD.ED 20:25 | DX: R07.89 Other chest pain (principal); R00.2 Palpitations; K21.9 Gastro-esophageal reflux disease without esophagitis; F17.210 Nicotine dependence, cigarettes, uncomplicated; Z86.16 Personal history of COVID-19; Z88.5 Allergy status to narcotic agent | CPT/HCPCS: 36415; 71046; 71046-26; 80053; 83880; 84484; 85025; 85379; 85610; 85730; 93005; 93010; 99284; 99285 ==

== ENCOUNTER 2022-07-20 09:09 | Day surgery (SDC) | payer BC ==
[~2022-07-20 09:09] MED LIST: Lactated Ringers 1,000 ML IV SCH; Lidocaine 1%/Sod Bicarbonate in NS 8.4% 1 ML Syringe IDERM PRN; Sodium Chloride 0.9% 10 ML Syringe FLUSH PRN; Sodium Chloride 0.9% 10 ML Syringe FLUSH SCH
[2022-07-20] MEDS ORDERED: Midazolam 1 MG/ML 2 ML SDV ONE (10:28)
[2022-07-20] MEDS ORDERED: Propofol 200 MG/20 ML SDV ONE (10:28)
[2022-07-20] MEDS ORDERED: Lidocaine 1% 4 ML ONE (10:28)
== END 2022-07-20 11:53 | disposition home or self-care (01) ==
LOC: JD.SDS 09:09
PROVIDERS: ATTEND Surgery
DX: K25.9 Gastric ulcer, unspecified as acute or chronic, without hemorrhage or perforation (principal); K29.50 Unspecified chronic gastritis without bleeding; M19.90 Unspecified osteoarthritis, unspecified site; K21.9 Gastro-esophageal reflux disease without esophagitis; Z88.5 Allergy status to narcotic agent; Z98.890 Other specified postprocedural states; Z87.891 Personal history of nicotine dependence; Z79.899 Other long term (current) drug therapy; Z86.16 Personal history of COVID-19
CPT/HCPCS: 43239; J2250; J2704; J7120; 00731; J3490

== ENCOUNTER 2024-07-18 12:26 | Emergency (ER) | payer OTHER ==
[2024-07-18] MEDS: Albuterol/Ipratropium 3.0-0.5 MG/3 ML Neb Soln NEB ONE (13:14)
[2024-07-18 13:49] LABS: A/G RATIO 0.4 (1-2); ALANINE AMINOTRANSFERASE,ALT 84 U/L (16-63); ALKALINE PHOSPHATASE 145 U/L (46-116); ANION GAP 15.1 (5-15); ASPARTATE AMNIOTRANSFERASE,AST 72 U/L (15-37); BILIRUBIN TOTAL 1.1 mg/dL (0.2-1.0); BLOOD UREA NITROGEN,BUN 14 mg/dL (7-18); BUN/CREATININE RATIO 12.7 (14-18); CALCIUM 9.5 mg/dL (8.5-10.1); CARBON DIOXIDE,CO2 24 mEq/L (21-32); CHLORIDE,CL 101 mEq/L (98-107); CREATININE 1.1 mg/dL (0.7-1.3); ESTIMATED GFR 87 mL/min (>60); GLUCOSE RANDOM 72 mg/dL (70-99); POTASSIUM,K 4.1 mEq/L (3.5-5.1); PROTEIN TOTAL,TP 7.3 g/dl (6.4-8.2); SODIUM,NA 136 mEq/L (136-145)
[2024-07-18 13:51] LABS: TROPONIN I HIGH SENSITIVITY 584 pg/mL (<=76)
[2024-07-18 14:07] LABS: EOSINOPHILS PERCENT AUTO 0.3 % (0.0-6.0); HEMATOCRIT 44.4 % (42.0-52.0); HEMOGLOBIN 14.9 gm/dl (14.0-18.0); IMMATURE GRAN ABSOLUTE AUTO 0.07 K/mm3 (0.00-0.05); IMMATURE GRAN PERCENT AUTO 2.3 % (0.0-0.4); LYMPHOCYTES ABSOLUTE AUTO 0.2 K/mm3 (1.0-4.8); LYMPHOCYTES PERCENT AUTO 5.8 % (24.0-44.0); MEAN CORPUSCULAR HEMOGLOBIN 30.5 pg (28.0-32.0); MEAN CORPUSCULAR HGB CONC 33.6 g/dl (32.0-36.0); MEAN PLATELET VOLUME 10.9 fl (9.4-12.4); MONOCYTES ABSOLUTE AUTO 0.1 K/mm3 (0.0-0.8); MONOCYTES PERCENT AUTO 2.9 % (0.0-8.0); NEUTROPHILS ABSOLUTE AUTO 2.7 K/mm3 (1.8-7.7); NEUTROPHILS PERCENT AUTO 87.7 % (41.0-71.0); PLATELET COUNT,PLT 149 K/mm3 (150-400); RED BLOOD CELL COUNT 4.88 M/mm3 (4.52-5.90)
[2024-07-18 14:09] LABS: LACTIC ACID 1.5 mmol/L (0.4-2.0)
[2024-07-18 14:12] LABS: INR 1.03; PROTHROMBIN TIME 10.9 SECONDS (9.7-12.0)
[2024-07-18 14:13] LABS: PTT,PARTIAL THROMBOPLSTIN TIME 30.7 SECONDS (21.7-31.4)
[2024-07-18] MEDS ORDERED: Iopamidol 755 Mg/ML 100 ML Bottle IVPUSH ONE (14:31)
[2024-07-18] MEDS: Sodium Chloride 0.9% 100 ML IV SCH (14:34)
[2024-07-18] MEDS: Iopamidol 755 Mg/ML 100 ML Bottle IVPUSH ONE (14:35)
[2024-07-18] MEDS ORDERED: Sodium Chloride 0.9% 100 ML IV SCH (14:45)
[2024-07-18] MEDS: Sodium Chloride 0.9% 1,000 ML IV ONE (14:46)
[2024-07-18] MEDS: cefTRIAXone 1 GM Vial IVPUSH ONE (14:47)
[2024-07-18] MEDS: Heparin Sodium 5,000 Units/ML Vial IVPUSH ONE (15:04)
[2024-07-18] MEDS: Heparin Sodium/D5W 250 ML IV SCH (15:50)
== END 2024-07-18 18:30 ==
LOC: JD.ED 12:26
DX: I21.4 Non-ST elevation (NSTEMI) myocardial infarction (principal); J18.9 Pneumonia, unspecified organism; K21.9 Gastro-esophageal reflux disease without esophagitis; Z86.16 Personal history of COVID-19; Z88.5 Allergy status to narcotic agent; Z79.899 Other long term (current) drug therapy
CPT/HCPCS: 36415; 71045; 71275; 80053; 83605; 84484; 85025; 85610; 85730; 87040; 87428; 93005; 94640; 96361; 96365; 96366; 96375; 99285; J0696; J1644; J7030; J7620; Q9967; 93010; A9270-GY